=== PATIENT | male | born 1975 | race Caucasian/White ===

== ENCOUNTER 2018-06-29 06:11 | Emergency (ER) | payer SELFPAY ==
[~2018-06-29] VITALS: Ht 170.2 cm; Wt 120.2 kg
--- OUTSIDE RECORDS SUMMARY | 2018-06-29 06:19 | XMS REPORT | Continuity of Care Document ---
Author Author [facility] Organization [facility] Address Unknown Phone Unavailable Allergies Active Description Code Type Severity Reaction Onset Reported/Identified Relationship to Patient Clinical Status Yes Lexapro Drug Allergy unknown 03/22/2012 Yes No Known Allergies NKMA N/A N/A 04/25/2018 Medications There is no data. Problems Date Dx Coded Attending Type Code Diagnosis Diagnosed By 03/22/2012 Lito Garcia MD Final 079.99 VIRAL INFECTION NOS 03/22/2012 Lito Garica MD Final 300.00 ANXIETY STATE NOS 03/22/2012 Lito Garcia MD Admitting 780.60 FEVER NOS 04/30/2018 Garcia Maged Final F17.210 Nicotine dependence, cigarettes, uncomplicated 04/30/2018 Garcia Maged Final I10 Essential (primary) hypertension 04/30/2018 Garcia Maged Final N23 Unspecified renal colic 04/30/2018 Garcia Maged Reason R10.9 Unspecified abdominal pain 04/30/2018 Garcia Maged Final Z87.442 Personal history of urinary calculi Procedures There is no data. Results Test Result Range CBC With Platelet and Differential - 04/25/18 18:04 Absolute Basophils 0.04 10*3/uL 0.00-0.20 Absolute Eosinophils 0.23 10*3/uL 0.00-0.50 Absolute Lymphocytes 3.32 10*3/uL 0.80-3.30 Absolute Monocytes 0.60 10*3/uL 0.30-1.00 Absolute Neutrophils 5.18 10*3/uL 1.90-7.00 Basophils 0 % 0-2 Eosinophils 2 % 0-4 HCT 45.5 % 42.0-52.0 HGB 16.1 g/dL 14.0-18.0 Immature Granulocytes 0.3 % 0.0-1.0 Lymphocytes 35 % 20-46 MCH 32.2 pg 27.0-32.0 MCHC 35.4 g/dL 32.0-36.0 MCV 91.0 fL 82.0-99.0 Monocytes 6 % 4-11 MPV 10.0 fL 9.4-12.3 Neutrophils 55 % 51-75 Nucleated RBC Automated 0.0 /100 WBC Platelet Count 282 K/uL 150-400 RBC 5.00 10*6/uL 4.60-6.20 RDW 12.9 % 11.5-14.5 WBC 9.4 K/uL 4.8-10.8 Urinalysis with reflex microscopic - 04/25/18 18:35 Appearance Clear NA Bilirubin Positive NA Negative Blood Negative NA Negative Color Yellow NA Glucose, Urine Negative Negative Ketones Trace Negative Leukocyte Esterase Negative NA Negative Nitrites Negative NA Negative pH 5.0 NA 5.0-8.0 Protein Negative NA Negative Specific [place] 1.025 NA 1.003-1.030 UA Collection type Catheter NA Urobilinogen 2.0 mg/dL <1.0 Comprehensive Metabolic Panel (CMP) - 04/25/18 18:40 Albumin 4.7 g/dL 3.5-4.8 Alkaline Phosphatase 62 U/L 26-104 ALT (SGPT) 45 U/L 17-63 Anion Gap 13 mEq/L 3-20 AST (SGOT) 33 U/L 15-41 Bilirubin Total 0.5 mg/dL 0.2-1.2 BUN 21 mg/dL 4-20 Calcium 9.6 mg/dL 8.6-10.0 Chloride 103 mEq/L 99-109 CO2 23 mEq/L 22-32 Creatinine 0.90 mg/dL 0.64-1.27 Globulin 2.6 g/dL 1.9-4.3 Glucose 109 mg/dL 70-100 Potassium 4.1 mEq/L 3.6-5.1 Protein 7.3 g/dL 6.1-7.9 Sodium 139 mEq/L 136-144 Lipase - 04/25/18 18:40 Lipase 25 U/L 8-48 eGFR - 04/25/18 18:40 eGFR >60 mL/min >60 Encounters ACCT No. Visit Date/Time Discharge Status Pt. Type Provider Facility Loc./Unit Complaint [id number] 03/22/2012 14:18:00 03/22/2012 16:50:00 DIS Emergency Jose PIERRE, Lito Lobato [facility] [place] [facility] [id number] 04/25/2018 17:12:00 04/25/2018 21:32:00 DIS Emergency Garcia Maged [facility] on [facility] ED R flank pain [id number] 11/04/2012 16:50:00 11/04/2012 18:15:00 DIS Emergency Melo [facility]
--- NOTE | 2018-06-29 06:39 | ED EENT ---
History of Present Illness General Chief Complaint: Nasal Problems Stated Complaint: POSS SINUS INFECTION-DRAINING Source: patient Exam Limitations: no limitations History of Present Illness Date Seen by Provider: Jun 29, 2018 Time Seen by Provider: 06:31 Initial Comments This 42-year-old white male presents with sinusitis. Patient has had fullness and discomfort in his sinuses for the last several days. The patient is experiencing increasing pain the left ear until he had sudden bloody drainage from the ear. The patient denies associated stiff neck or photophobia. He has had no productive cough. He denies nausea vomiting or diarrhea. The patient denies associated point tenderness over the sinuses, facial swelling , or erythema. Allergies and Home Medications Patient Home Medication List Home Medication List Reviewed: Yes Review of Systems Review of Systems Constitutional: No chills, No fever Eyes: Denies Blurred Vision Ears: Bloody Discharge (left ear) Nose: congestion Mouth: denies pain Throat: denies neck stiffness, denies hoarse, denies painful swallowing Respiratory: No cough Cardiovascular: No chest pain Gastrointestinal: No abdominal pain, No diarrhea, No nausea, No vomiting Musculoskeletal: No back pain Neurological: No Symptoms Reported Hematologic/Lymphatic: No Symptoms Reported Immunological/Allergic: no symptoms reported Past Gqgpnep-Ezrksk-Cpvmlk Hx Past Med/Social Hx: Reviewed Nursing Past Med/Soc Hx Patient Social History Alcohol Use: Denies Use Recreational Drug Use: No Smoking Status: Never a Smoker 2nd Hand Smoke Exposure: No Recent Foreign Travel: No Contact w/Someone Who Travel: No Recent Hopitalizations: No Physical Abuse: No Sexual Abuse: No Mistreated: No Fear: No Seasonal Allergies Seasonal Allergies: No Past Medical History Surgeries: No Respiratory: No Cardiac: No Neurological: No Genitourinary: No Gastrointestinal: No Musculoskeletal: No Endocrine: No HEENT: No Cancer: No Psychosocial: No Integumentary: No Blood Disorders: No Physical Exam Height, Weight, BMI Height: '" Weight: lbs. oz. kg; BMI Method: General Appearance: WD/WN, no apparent distress Eyes: bilateral eye normal inspection Ears: left ear TM perforation Nose: normal inspection; No active bleeding Mouth/Throat: normal mouth inspection, pharynx normal; No maxillary swelling, No pharynx swelling, No pharynx tenderness, No tonsillar exudate, No tonsillar swelling, No trismus Neck: non-tender, full range of motion, supple Cardiovascular: normal peripheral pulses Respiratory: chest non-tender Gastrointestinal: normal bowel sounds Neurologic/Psychiatric: no motor/sensory deficits, alert, normal mood/affect Skin: normal color, warm/dry Progress/Results/Core Measures Progress Progress Note : Time: 06:43 Progress Note I discussed treatment options with patient. He was placed on Zithromax and Prednisone. I recommended he follow-up with his caregiver tomorrow. I invited him to return if any problems or questions. Departure Impression Primary Impression: Sinusitis Qualified Codes: J01.00 - Acute maxillary sinusitis, unspecified Additional Impression: Perforation of left tympanic membrane Disposition: HOME, SELF-CARE Condition: Unchanged Departure-Patient Inst. Decision time for Depature: 06:47 Referrals: [facility] [place],LOCAL PHYSICIAN (PCP) Primary Care Physician Patient Instructions: Ruptured Eardrum, Sinusitis in Adults Add. Discharge Instructions: Zithromax and prednisone as prescribed. Close follow-up with your caregiver tomorrow. Return if any problems or questions. All discharge instructions reviewed with patient and/or family. Voiced understanding. TANGELA MADISON MD Jun 29, 2018 06:39
[2018-06-29 06:55] VITALS: BP 178/99
== END 2018-06-29 06:55 | disposition home or self-care (01) ==
LOC: ER 06:16
DX: J32.9 Chronic sinusitis, unspecified (principal); H72.92 Unspecified perforation of tympanic membrane, left ear
CPT/HCPCS: 99282

== ENCOUNTER 2018-07-31 23:39 | Emergency (ER) | payer SELFPAY ==
[~2018-07-31] VITALS: Ht 170.2 cm; Wt 128.4 kg
--- OUTSIDE RECORDS SUMMARY | 2018-07-31 23:45 | XMS REPORT | Continuity of Care Document ---
Author Author [facility] Organization [facility] Address Unknown Phone Unavailable Allergies Active Description Code Type Severity Reaction Onset Reported/Identified Relationship to Patient Clinical Status Yes Lexapro Drug Allergy unknown 03/22/2012 Yes No Known Allergies NKMA N/A N/A 04/25/2018 Medications There is no data. Problems Date Dx Coded Attending Type Code Diagnosis Diagnosed By 03/22/2012 Lito Garcia MD Final 079.99 VIRAL INFECTION NOS 03/22/2012 Lito Garcia MD Final 300.00 ANXIETY STATE NOS 03/22/2012 Lito Garcia MD Admitting 780.60 FEVER NOS 04/30/2018 Garcia Maged Final F17.210 Nicotine dependence, cigarettes, uncomplicated 04/30/2018 Garcia Maged Final I10 Essential (primary) hypertension 04/30/2018 Garcia Maged Final N23 Unspecified renal colic 04/30/2018 Garcia Maged Reason R10.9 Unspecified abdominal pain 04/30/2018 Garcia Maged Final Z87.442 Personal history of urinary calculi 06/29/2018 TANGELA MADISON MD Ot H72.92 UNSPECIFIED PERFORATION OF TYMPANIC MEMB 06/29/2018 TANGELA MADISON MD Ot J32.9 CHRONIC SINUSITIS, UNSPECIFIED 07/01/2018 TANGELA MADISON MD Ot H72.92 UNSPECIFIED PERFORATION OF TYMPANIC MEMB 07/01/2018 TANGELA MADISON MD Ot J32.9 CHRONIC SINUSITIS, UNSPECIFIED Procedures There is no data. Results Test [...] NA 5.0-8.0 Protein Negative NA Negative Specific [place] 1.025 NA 1.003-1.030 UA Collection type Catheter [...] Status Pt. Type Provider Facility Loc./Unit Complaint [id number] 03/22/2012 14:18:00 03/22/2012 16:50:00 DIS Emergency Lito Garcia MD [facility] FERM [id number] 06/29/2018 06:16:00 06/29/2018 06:55:00 DIS Emergency LOS PIERRE, TANGELA Lobato [facility] ER POSS SINUS INFECTION- DRAINING [id number] 07/31/2018 23:41:00 ACT Emergency DAVIDA HARTLEY MD [facility] ER FEVER,COLD SWEATS [id number] 04/25/2018 17:12:00 04/25/2018 21:32:00 DIS Emergency Garcia Maged [facility] ED R flank pain [id number] 11/04/2012 16:50:00 11/04/2012 18:15:00 DIS Emergency Ramon Melo DO [facility]
--- NOTE | 2018-08-01 00:13 | ED Cough/URI ---
General Chief Complaint: Cough/Cold/Flu Symptoms Stated Complaint: FEVER,COLD SWEATS Source: patient, spouse History of Present Illness Date Seen by Provider: Aug 01, 2018 Time Seen by Provider: 00:00 Initial Comments The patient presents to the ER by private conveyance with his and a chief complaint that for a day and a half he's had coughs fevers chills malaise bodyaches. They do not own a thermometer so not sure how high the fever then. She's been using Tylenol and yjjo-ouy-cfunlfm cough remedies with Tylenol in it. He does have a history of diabetes but he lost some weight and no longer had use anything for his diabetes so he stopped following up with primary care. He also stopped using his blood pressure medicines for no particular reason. He is not sure when his last A1c was from 6-8 months ago. Is not followed up with a primary doctor since then. He says he does not take any medicines now. He is not having any pain, nausea, diarrhea or constipation. He says he has been urinating a lot lately. He does not have dysuria or discharge. As we concluded our examination of the patient and came up with a plan to work him up which includes doing an Accu-Chek since he has claimed he has diabetes but he doesn't know what is been doing lately his asked if we could check his cholesterol. I asked her why we would check his cholesterol and she said because he had a fever earlier. She then wanted to know with his dizziness maybe his cholesterol being high would cause that. Allergies and Home Medications Allergies Coded Allergies: No Known Drug Allergies (Unverified , 08/01/18) Patient Home Medication List Home Medication List Reviewed: Yes Review of Systems Review of Systems Constitutional: chills, fever, malaise EENTM: No ear discharge, No ear pain Respiratory: cough; No phlegm, No short of breath, No wheezing Cardiovascular: No chest pain, No edema Gastrointestinal: No abdominal pain, No constipation, No nausea Genitourinary: No discharge, No dysuria Musculoskeletal: No back pain, No joint pain Past Inmrjup-Idixlx-Evixuz Hx Patient Social History Alcohol Use: Rarely Uses Recreational Drug Use: Yes Drug of Choice: history of marijuana Smoking Status: Former Smoker 2nd Hand Smoke Exposure: No Recent Foreign Travel: No Contact w/Someone Who Travel: No Recent Hopitalizations: No Seasonal Allergies Seasonal Allergies: No Past Medical History Surgeries: No Respiratory: No Cardiac: No Neurological: No Genitourinary: No Gastrointestinal: No Musculoskeletal: No Endocrine: No HEENT: No Cancer: No Psychosocial: No Integumentary: No Blood Disorders: No Physical Exam Vital Signs - First Documented 07/31/18 23:54 Temp 101.1 Pulse 85 Resp 18 B/P (MAP) 127/89 (102) Pulse Ox 94 O2 Delivery Room Air Capillary Refill : Height: 5'7.00" Weight: 265lbs. 0oz. 120.476036sw; BMI Method:Stated General Appearance: WD/WN, mild distress Eyes: Bilateral Eye Normal Inspection, Bilateral Eye PERRL, Bilateral Eye EOMI HEENT: PERRL/EOMI, normal ENT inspection, TMs normal, pharynx normal, pharyngeal erythema (with some blood-tinged mucus in the oral and nasal pharyngeal airway is) Neck: full range of motion, supple, normal inspection Respiratory: lungs clear, normal breath sounds, no respiratory distress, no accessory muscle use Cardiovascular: normal peripheral pulses, regular rate, rhythm, no edema, no murmur Gastrointestinal: normal bowel sounds, non tender, soft Neurologic/Psychiatric: alert, normal mood/affect, oriented x 3 Progress/Results/Core Measures Suspected Sepsis SIRS Temperature: Pulse: Respiratory Rate: Blood Pressure / Mean: Results/Orders Lab Results Laboratory Tests Test 08/01/18 00:00 08/01/18 00:08 Range/Units Group A Streptococcus Screen NEGATIVE NEGATIVE Glucometer 178 H 70-110 MG/DL Micro Results Microbiology 08/01/18 Influenza Types A,B Antigen (ROSETTA) - Final, Complete My Orders Orders - DAVIDA HARTLEY Accucheck Stat ONCE (08/01/18 00:02) Ibuprofen Level (08/01/18 00:02) Rapid Strep A Screen (08/01/18 00:02) Influenza A And B Antigens (08/01/18 00:02) Ibuprofen Tablet (Motrin Tablet) (08/01/18 00:30) Vital Signs/I&O 07/31/18 07/31/18 23:54 23:54 Temp 101.1 Pulse 85 Resp 18 B/P (MAP) 127/89 (102) Pulse Ox 94 O2 Delivery Room Air Room Air Capillary Refill : Progress Note : Time: 00:13 Progress Note Patient the patient is a fever so we'll give him some Motrin check a influenza and rapid strep. Vital signs are otherwise aseptic. Heart rate in the 70s and 80s. Lung sounds are okay. I can't come up with any reason to check his cholesterol this time but we will check an Accu-Chek and it was 170. He probably needs to follow-up primary care and have his diabetes addressed appropriately however there is nothing emergent about this. With his otherwise aseptic vital signs and nonemergent examination no further laboratory examination is indicated. The patient is okay with this plan. Departure Impression Primary Impression: Influenza A Additional Impression: Diabetes mellitus type 2, noninsulin dependent Disposition: HOME, SELF-CARE Condition: Stable Departure-Patient Inst. Decision time for Depature: 00:22 Referrals: NO,LOCAL PHYSICIAN (PCP/Family) Primary Care Physician Patient Instructions: LOCAL PHYSICIAN LIST Add. Discharge Instructions: Drink plenty of water and use Tylenol 1000 mg every 8 hours and/or ibuprofen 800 mg every 8 hours as needed for fever or malaise. You can use over-the- counter cough remedies as desired but try and limit your Tylenol intake to less than 3000 mg in 24 hour period. Establish care with a primary care doctor to discuss your diabetes and management of it. If you desire to take the Tamiflu started tomorrow morning one capsule twice a day for 5 days to reduce the length of time and severity of symptoms of influenza. You should wash your hands and wear a mask when in public. Stay home get some rest for the next 4-5 days and do not return to work until you are 24 hours fever free without using Tylenol and/or ibuprofen. All discharge instructions reviewed with patient and/or family. Voiced understanding. Scripts Oseltamivir Phosphate (Tamiflu) 75 Mg Cap 75 MG PO BID for 5 Days, #10 CAP 0 Refills Prov: DAVIDA HARTLEY 08/01/18 Work/School Note: Work Release Form Date Seen in the Emergency Department: Aug 01, 2018 Return to Work: Aug 06, 2018 Restrictions: Return-No Fever (24hrs) DAVIDA HARTLEY Aug 01, 2018 00:13
[2018-08-01] MEDS ORDERED: IBUPROFEN 800 MG (MOTRIN) TAB PO ONE (00:30)
[2018-08-01] MEDS ORDERED: OSLT75C PO (00:33)
[2018-08-01 00:45] VITALS: BP 114/46
== END 2018-08-01 00:45 | disposition home or self-care (01) ==
LOC: EDUNIT# 23:39 → ER 23:41
DX: J10.1 Influenza due to other identified influenza virus with other respiratory manifestations (principal); E11.9 Type 2 diabetes mellitus without complications; Z87.891 Personal history of nicotine dependence
CPT/HCPCS: 82962; 87430; 87804